=== PATIENT | female | born 1950 | race Caucasian/White ===

== ENCOUNTER 2017-04-20 19:16 | Inpatient (IN) ==
[2017-04-20] MEDS ORDERED: 0.9 % Sodium Chloride 1,000 ML IVC ONE (19:32)
[2017-04-20 20:34] LABS: Basophils # 0.1 K/mcL (0.0-0.2); Basophils % 0.6 %; Eosinophils # 0.1 K/mcL (0.0-0.6); Eosinophils % 0.6 %; Hematocrit 42.8 % (35.3-44.9); Hemoglobin 14.5 g/dL (11.5-15.4); Immature Granulocytes % 0.5 % (0-4); Lymphocytes # 2.4 K/mcL (0.6-4.6); Lymphocytes % 23.6 %; Mean Corpuscular HGB Conc 33.9 g/dL (31.6-35.5); Mean Corpuscular Hemoglobin 31.2 pg (28.0-33.3); Mean Platelet Volume 9.5 fL (9.4-12.4); Monocytes % 10.1 %; Neutrophils # 6.5 K/mcL (1.6-8.9); Platelet Count 366 K/mcL (140-400); Red Blood Count 4.65 M/mcL (3.82-4.97); Red Cell Distribution Width 12.3 % (11.5-14.5); Segmented Neutrophils % 64.6 %
[2017-04-20 20:39] LABS: INR 1.1; Prothrombin Time 11.8 Seconds (9.4-12.1)
[2017-04-20 20:42] LABS: Activated Partial Thrombo Time 29.3 Seconds (26.0-36.0)
[2017-04-20 20:49] LABS: Alanine Aminotransferase 21 Units/L (0-55); Albumin 3.7 g/dL (3.5-5.0); Albumin/Globulin Ratio 0.9 (1.1-2.2); Alkaline Phosphatase 55 Units/L (38-126); BUN/Creatinine Ratio 11 (6-26); Bilirubin,Indirect 0.3 mg/dL (0.0-1.2); Bilirubin,Total 0.5 mg/dL (0.2-1.2); Blood Urea Nitrogen 11 mg/dL (7-20); Calcium 10.1 mg/dL (8.6-10.8); Carbon Dioxide 25 mEq/L (19-29); Chloride 103 mEq/L (98-109); Globulin 3.9 g/dL (2.4-3.5); Glucose 126 mg/dL (70-99); Lipase 23 Units/L (8-78); Osmolality,Calculated 289 (280-300); Phosphorous 3.5 mg/dL (2.3-4.7); Sodium 139 mEq/L (136-145); Total Protein 7.6 g/dL (6.0-8.3); eGFR For African Americans > 60 (> 60); eGFR For Non-African Americans 55 (> 60)
[2017-04-20 20:51] LABS: Aspartate Amino Transferase 29 Units/L (5-34); Bilirubin,Direct 0.2 mg/dL (0.0-0.5); Magnesium 2.1 mg/dL (1.6-2.6); Potassium 3.6 mEq/L (3.5-4.5)
[2017-04-20 21:35] LABS: Bilirubin,Urine Negative (Negative); Blood,Urine Negative (Negative); Clarity,Urine Clear (Clear); Color,Urine Yellow (Yellow); Glucose,Urine (UA) Normal (Normal); Ketones,Urine Negative (Negative); Leukocyte Esterase,Urine Moderate (Negative); Nitrite,Urine Negative (Negative); PH,Urine 7.5 pH Units (5.0-8.0); Protein,Urine Negative (Neg-Trace); Specific Gravity,Urine 1.007 (1.010-1.025); Urobilinogen,Urine Normal (Normal)
[2017-04-20 21:37] LABS: Bacteria,Urine None Seen per hpf (None-Few); Hyaline Casts,Urine None Seen per lpf (None-Few); Squamous Epithelial Cell,Urine Many per lpf (None-Few)
--- NOTE | 2017-04-20 22:53 | Emergency Department Note ---
Disposition Clinical Impression: Acute confusion, Urinary (tract) obstruction Disposition: Admitted As Inpatient Condition: Good Forms: ED Satisfaction Letter Time of Disposition: 23:01 General Adult HPI - General Chief complaint: ED Back Pain/Injury Stated complaint: back pain friend says is psychotic Time Seen by Provider: 04/20/17 19:23 Source: patient Mode of arrival: wheelchair Limitations: no limitations Nursing Notes Reviewed: Yes Vital Signs Reviewed: Yes - History of Present Illness HPI Narrative: Patient presents emergency room with confusion from home. Family is concerned that she has a urinary tract infection again. They are also worried about her having issues with depression secondary to her sister's being at this time of the year 1 year ago. They deny any other symptoms or issues at this time. No new medications. No trauma. Onset (ago): day(s) Radiation: non-radiation Pain Severity: similar to prior episodes Pain Scale: 10 Consistency: constant Improves with: nothing Worsens with: nothing Associated symptoms: Reports: confusion, loss of appetite Treatments Prior to Arrival: none - Related Data Home Medications Medication Instructions Recorded Confirmed FLUoxetine HCl [Fluoxetine HCl] 60 mg PO DAILY 07/10/16 07/10/16 traMADol [Ultram] 50 mg PO TID PRN 07/10/16 07/10/16 Furosemide [Lasix] 20 mg PO DAILY 07/11/16 07/11/16 Lisinopril/Hydrochlorothiazide 1 tab PO DAILY 07/11/16 07/11/16 [Zestoretic 20-25 mg Tablet] Valacyclovir HCl [Valtrex] 1,000 mg PO DAILY 07/11/16 07/11/16 predniSONE [Prednisone] 40 mg PO DAILY 07/11/16 07/11/16 Acetaminophen/Diphenhydramine 1 tab PO HS PRN 04/20/17 04/20/17 [Acetaminophen Pm Caplet] Calcium Carbonate/Vitamin D3 1 tab PO DAILY 04/20/17 04/20/17 [Calcium 500+D Tablet Chew] Cholecalciferol (D-3) [Vitamin D] 1,000 unit PO DAILY 04/20/17 04/20/17 Doxycycline 100 mg PO BID 04/20/17 04/20/17 Folic Acid 1 mg PO DAILY 04/20/17 04/20/17 Ibuprofen [Motrin] 400 mg PO Q6HR PRN 04/20/17 04/20/17 Quetiapine Fumarate [Seroquel] 50 mg PO BID 04/20/17 04/20/17 Previous Rx's Medication Instructions Recorded Potassium Chloride [Klor-Con 10] 10 meq PO DAILY #30 tablet.er 07/12/16 Allergies Allergy/AdvReac Type Severity Reaction Status Date / Time No Known Allergies Allergy Verified 04/20/17 22:48 All systems ED: reviewed and negative except as stated. Review of Systems: As Per HPI Constitutional: Denies: fever, chills Cardiovascular: Denies: chest pain, palpitations, dyspnea on exertion Respiratory: Denies: cough, dyspnea, wheezes Gastrointestinal: Denies: abdominal pain, nausea, vomiting, diarrhea, constipation Genitourinary: Reports: dysuria. Denies: urgency, frequency, hematuria Musculoskeletal: Denies: back pain, neck pain Neurological: Denies: headache, weakness Psychiatric: Reports: depression. Denies: anxiety Past Medical History - Past Medical History Attestation: Yes The following information was validated with the patient. Source: patient Medical history: Reports: hyperlipidemia, hypertension Surgical history: Reports: non-contributory Psychiatric history: Reports: anxiety, depression [employer] history: Reports: no [employer] history - Social History Smoking Status: Never smoker Smokeless Tobacco Status: No Alcohol use: Reports: occasionally Drug use: Reports: none Physical Exam - General Limitations: no limitations General appearance: alert - Head Head exam: atraumatic, normocephalic, normal inspection - Eye Eye exam: Present: normal appearance, PERRL, EOMI. Absent: periorbital swelling , periorbital tenderness - ENT ENT exam: normal exam, normal oropharynx, mucous membranes moist - Neck Neck exam: Present: normal inspection, full ROM, trachea midline. Absent: lymphadenopathy - Chest Chest inspection: Present: normal inspection, symmetric chest wall rise - Respiratory Respiratory exam: Present: normal lung sounds bilaterally. Absent: respiratory distress, accessory muscle use - Cardiovascular Cardiovascular exam: Present: regular rate, normal rhythm, normal heart sounds - Abdominal Exam Abdominal exam: Present: soft, tenderness, normal bowel sounds. Absent: distention, guarding, rebound, rigidity, Trivedi's sign, Rovsing's sign, tenderness at McBurney's Point, pulsatile mass, hernia - Extremities Exam Extremities exam: Present: normal inspection, full ROM, normal capillary refill. Absent: tenderness, pedal edema, joint swelling, calf tenderness - Back Exam Back exam: Present: normal inspection, full ROM, CVA tenderness (R), CVA tenderness (L). Absent: tenderness - Neurological Exam Neurological exam: Present: alert, CN II-XII intact, normal gait - Skin Skin exam: Present: warm, dry, intact, normal color Course Course Narrative: Patient seen and examined at the time of arrival. See history of present illness. 66-year-old female presents to emergency room with family with concern for possible confusion secondary to urinary tract infection. Family denies any other issues except for possible depression secondary to a loss in the family one year ago at this time. Vital signs are reviewed and are stable in presentation. I present to the room patient lying in the bed in no distress. She has intermittent signs of confusion and does not want to interact her conversations about what is going on. Her head is atraumatic her pupils are equal round reactive to light. Her mucous membranes are moist. Her lungs are clear heart is regular. Abdomen is soft with mild tenderness diffusely across the abdomen . nondistended with no guarding no rigidity and no peritoneal like symptoms at this time.patient is alert intermittent send the confusion disoriented to time at points but is appropriate for place. Patient moves all fours extremities without any difficulty. Pulses are intact. No signs of pitting edema. No tenderness to the calves. Patient is concerning based on symptoms and history as well as the family interaction for possible urinary tract infection causing confusion. CT imaging the head chest x-ray CT the abdomen along with CBC chemistry and troponin lipase liver function testing and urinalysis to be completed at this time. Fluids appears to Rocephin to be given at this point. Otherwise no other acute issues noted this time. Patient is stable resting comfortably in the bed. Disposition pending treatment course evaluation - Reevaluation(s) Reevaluation #1: Patient found to have negative laboratory workup but there is concern for possible urinary tract infection secondary to leukoesterases and white blood cells on the urinalysis without any blood. No bacteria was physically seen at this time. CT imaging is concerning for pyelonephritis secondary to bilateral nephric stranding. This is consistent with the presentation of this time making the urinary tract infection causing the confusion top on the differential. CT imaging of the head and chest x-ray are otherwise negative. Patient family informed comfortable with the plan at this time which would be admission the hospital for definitive management of what appears to be a UTI causing confusion in an elderly female. Patient otherwise shows no acute signs of decompensation distress at this point. Hospitalist to be paged at this time Time: 22:59 Reevaluation #2: Discussed with Dr. Butts. Reviewed the presentation symptoms medical history as well as intervention here. No other concerns or complaints at this time. Patient is otherwise stable. Will omit the hospital this time for definitive management. We will continue to monitor here Z admission processes completed Time: 00:08 Vital Signs Temperature 97.9 F 04/20/17 19:18 Pulse Rate 99 04/20/17 19:18 Respiratory Rate 20 04/20/17 19:18 Blood Pressure 110/73 04/20/17 19:18 O2 Sat by Pulse Oximetry 97 04/20/17 19:18 Temperature 97.9 F 04/20/17 19:18 Pulse Rate 99 04/20/17 19:18 Respiratory Rate 20 04/20/17 19:18 Blood Pressure 110/73 04/20/17 19:18 O2 Sat by Pulse Oximetry 97 04/20/17 19:18 Oxygen Delivery Oxygen Delivery Room Air Medical Decision Making - MDM Narrative Medical decision making narrative: Confusion, urinary tract infection - Medical Records Medical records reviewed: Yes I reviewed the patient's medical records. - Lab Data Lab results reviewed: Yes I reviewed the patient's lab results. Result diagrams: 04/20/17 20:21 04/20/17 20:21 Lab Results 04/20/17 04/20/17 04/20/17 Range/Units 20:21 20:21 20:21 WBC 10.1 (4.3-11.1) K/mcL RBC 4.65 (3.82-4.97) M/mcL Hgb 14.5 (11.5-15.4) g/dL Hct 42.8 (35.3-44.9) % MCV 92.0 (83.0-100.0) fL MCH 31.2 (28.0-33.3) pg MCHC 33.9 (31.6-35.5) g/dL RDW 12.3 (11.5-14.5) % Plt Count 366 (140-400) K/mcL MPV 9.5 (9.4-12.4) fL Immature Gran % 0.5 (0-4) % Seg Neutrophils % 64.6 % Lymphocytes % 23.6 % Monocytes % 10.1 % Eosinophils % 0.6 % Basophils % 0.6 % Neutrophils # 6.5 (1.6-8.9) K/mcL Lymphocytes # 2.4 (0.6-4.6) K/mcL Monocytes # 1.0 (0.0-1.3) K/mcL Eosinophils # 0.1 (0.0-0.6) K/mcL Basophils # 0.1 (0.0-0.2) K/mcL PT 11.8 (9.4-12.1) Seconds INR 1.1 APTT 29.3 (26.0-36.0) Seconds Sodium 139 (136-145) mEq/L Potassium 3.6 (3.5-4.5) mEq/L Chloride 103 (98-109) mEq/L Carbon Dioxide 25 (19-29) mEq/L BUN 11 (7-20) mg/dL Creatinine 1.01 (0.57-1.11) mg/dL Est GFR ( Amer) > 60 (> 60) Est GFR (Non-Af Amer) 55 L (> 60) BUN/Creatinine Ratio 11 (6-26) Glucose 126 H (70-99) mg/dL Calculated Osmolality 289 (280-300) Lactic Acid (0.5-2.2) mmol/L Calcium 10.1 (8.6-10.8) mg/dL Phosphorus 3.5 (2.3-4.7) mg/dL Magnesium 2.1 (1.6-2.6) mg/dL Total Bilirubin 0.5 (0.2-1.2) mg/dL Direct Bilirubin 0.2 (0.0-0.5) mg/dL Indirect Bilirubin 0.3 (0.0-1.2) mg/dL AST 29 (5-34) Units/L ALT 21 (0-55) Units/L Alkaline Phosphatase 55 (38-126) Units/L Troponin I (0-0.03) ng/mL B-Natriuretic Peptide (0-100) pg/mL Serum Total Protein 7.6 (6.0-8.3) g/dL Albumin 3.7 (3.5-5.0) g/dL Globulin 3.9 H (2.4-3.5) g/dL Albumin/Globulin Ratio 0.9 L (1.1-2.2) Lipase 23 (8-78) Units/L Urine Color (Yellow) Urine Clarity (Clear) Urine pH (5.0-8.0) pH Units Ur Specific Nora (1.010-1.025) Urine Protein (Neg-Trace) mg/dL Urine Glucose (UA) (Normal) mg/dL Urine Ketones (Negative) mg/dL Urine Blood (Negative) Urine Nitrite (Negative) Urine Bilirubin (Negative) Urine Urobilinogen (Normal) mg/dL Ur Leukocyte Esterase (Negative) Urine Microscopic RBC (0-3) per hpf Urine Microscopic WBC (0-3) per hpf Ur Squamous Epith Cells (None-Few) per lpf Urine Bacteria (None-Few) per hpf Hyaline Casts (None-Few) per lpf Ur Culture Indicated? (NO) 04/20/17 04/20/17 04/20/17 Range/Units 20:21 20:21 20:21 WBC (4.3-11.1) K/mcL RBC (3.82-4.97) M/mcL Hgb (11.5-15.4) g/dL Hct (35.3-44.9) % MCV (83.0-100.0) fL MCH (28.0-33.3) pg MCHC (31.6-35.5) g/dL RDW (11.5-14.5) % Plt Count (140-400) K/mcL MPV (9.4-12.4) fL Immature Gran % (0-4) % Seg Neutrophils % % Lymphocytes % % Monocytes % % Eosinophils % % Basophils % % Neutrophils # (1.6-8.9) K/mcL Lymphocytes # (0.6-4.6) K/mcL Monocytes # (0.0-1.3) K/mcL Eosinophils # (0.0-0.6) K/mcL Basophils # (0.0-0.2) K/mcL PT (9.4-12.1) Seconds INR APTT (26.0-36.0) Seconds Sodium (136-145) mEq/L Potassium (3.5-4.5) mEq/L Chloride (98-109) mEq/L Carbon Dioxide (19-29) mEq/L BUN (7-20) mg/dL Creatinine (0.57-1.11) mg/dL Est GFR ( Amer) (> 60) Est GFR (Non-Af Amer) (> 60) BUN/Creatinine Ratio (6-26) Glucose (70-99) mg/dL Calculated Osmolality (280-300) Lactic Acid 1.3 (0.5-2.2) mmol/L Calcium (8.6-10.8) mg/dL Phosphorus (2.3-4.7) mg/dL Magnesium (1.6-2.6) mg/dL Total Bilirubin (0.2-1.2) mg/dL Direct Bilirubin (0.0-0.5) mg/dL Indirect Bilirubin (0.0-1.2) mg/dL AST (5-34) Units/L ALT (0-55) Units/L Alkaline Phosphatase (38-126) Units/L Troponin I 0.00 (0-0.03) ng/mL B-Natriuretic Peptide 70 (0-100) pg/mL Serum Total Protein (6.0-8.3) g/dL Albumin (3.5-5.0) g/dL Globulin (2.4-3.5) g/dL Albumin/Globulin Ratio (1.1-2.2) Lipase (8-78) Units/L Urine Color (Yellow) Urine Clarity (Clear) Urine pH (5.0-8.0) pH Units Ur Specific Nora (1.010-1.025) Urine Protein (Neg-Trace) mg/dL Urine Glucose (UA) (Normal) mg/dL Urine Ketones (Negative) mg/dL Urine Blood (Negative) Urine Nitrite (Negative) Urine Bilirubin (Negative) Urine Urobilinogen (Normal) mg/dL Ur Leukocyte Esterase (Negative) Urine Microscopic RBC (0-3) per hpf Urine Microscopic WBC (0-3) per hpf Ur Squamous Epith Cells (None-Few) per lpf Urine Bacteria (None-Few) per hpf Hyaline Casts (None-Few) per lpf Ur Culture Indicated? (NO) 04/20/17 Range/Units 21:20 WBC (4.3-11.1) K/mcL RBC (3.82-4.97) M/mcL Hgb (11.5-15.4) g/dL Hct (35.3-44.9) % MCV (83.0-100.0) fL MCH (28.0-33.3) pg MCHC (31.6-35.5) g/dL RDW (11.5-14.5) % Plt Count (140-400) K/mcL MPV (9.4-12.4) fL Immature Gran % (0-4) % Seg Neutrophils % % Lymphocytes % % Monocytes % % Eosinophils % % Basophils % % Neutrophils # (1.6-8.9) K/mcL Lymphocytes # (0.6-4.6) K/mcL Monocytes # (0.0-1.3) K/mcL Eosinophils # (0.0-0.6) K/mcL Basophils # (0.0-0.2) K/mcL PT (9.4-12.1) Seconds INR APTT (26.0-36.0) Seconds Sodium (136-145) mEq/L Potassium (3.5-4.5) mEq/L Chloride (98-109) mEq/L Carbon Dioxide (19-29) mEq/L BUN (7-20) mg/dL Creatinine (0.57-1.11) mg/dL Est GFR ( Amer) (> 60) Est GFR (Non-Af Amer) (> 60) BUN/Creatinine Ratio (6-26) Glucose (70-99) mg/dL Calculated Osmolality (280-300) Lactic Acid (0.5-2.2) mmol/L Calcium (8.6-10.8) mg/dL Phosphorus (2.3-4.7) mg/dL Magnesium (1.6-2.6) mg/dL Total Bilirubin (0.2-1.2) mg/dL Direct Bilirubin (0.0-0.5) mg/dL Indirect Bilirubin (0.0-1.2) mg/dL AST (5-34) Units/L ALT (0-55) Units/L Alkaline Phosphatase (38-126) Units/L Troponin I (0-0.03) ng/mL B-Natriuretic Peptide (0-100) pg/mL Serum Total Protein (6.0-8.3) g/dL Albumin (3.5-5.0) g/dL Globulin (2.4-3.5) g/dL Albumin/Globulin Ratio (1.1-2.2) Lipase (8-78) Units/L Urine Color Yellow (Yellow) Urine Clarity Clear (Clear) Urine pH 7.5 (5.0-8.0) pH Units Ur Specific Nora 1.007 L (1.010-1.025) Urine Protein Negative (Neg-Trace) mg/dL Urine Glucose (UA) Normal (Normal) mg/dL Urine Ketones Negative (Negative) mg/dL Urine Blood Negative (Negative) Urine Nitrite Negative (Negative) Urine Bilirubin Negative (Negative) Urine Urobilinogen Normal (Normal) mg/dL Ur Leukocyte Esterase Moderate H (Negative) Urine Microscopic RBC 3-5 H (0-3) per hpf Urine Microscopic WBC 5-15 H (0-3) per hpf Ur Squamous Epith Cells Many H (None-Few) per lpf Urine Bacteria None Seen (None-Few) per hpf Hyaline Casts None Seen (None-Few) per lpf Ur Culture Indicated? YES A (NO) - Radiology Data Radiology results reviewed: Yes I reviewed the patient's radiology results. CT imaging of the head is negative for acute pathology. Chest x-ray stable. CT imaging of the abdomen shows bilateral perinephric stranding. - EKG Data EKG #1 EKG attestation: Yes I reviewed and interpreted this EKG. EKG shows normal: sinus rhythm, axis, intervals, QRS complexes, ST-T waves Rate: normal Rhythm: NSR [place]/QRS: normal When compared to previous EKG there are: no significant changes Interpretation: no acute changes, unchanged when compared to prior tracing (date ) (07/10/16) Critical Care Time Critical Care Time: Yes Total Critical Care Time: 35 Attestation: Critical care performed: Time is exclusive of separately billable procedures. Time includes: direct patient care, patient reassessment, coordination of patient care, interpretation of data (laboratory data, radiology data, and respiratory data), review of patient's medical records, medical consultation and documentation of patient care. Procedures included in critical care time: Procedures excluded from critical care time:
[2017-04-21] MEDS ORDERED: traMADol 50 MG TABLET PO PRN (00:23)
[2017-04-21] MEDS ORDERED: ACETAMINOPHEN PM PO PRN (00:23)
[2017-04-21] MEDS ORDERED: Naloxone 0.4 MG/ML INJ IVP PRN (00:27)
--- NOTE | 2017-04-21 00:35 | Internal Med History&Physical ---
Date of Encounter: 04/21/17 Time of Encounter: 00:32 Assessment and Plan (1) Pyelonephritis, acute Current visit: Yes Status: Acute IV fluids, IV Rocephin, urine cultures pending to follow , urinalysis with scant pyuria (2) Encephalopathy acute Current visit: Yes Status: Acute Improved at current. Likely secondary to pyelonephritis (3) HTN (hypertension), benign Current visit: Yes Status: Acute Continue home blood pressure medicines (4) Depression Current visit: No Status: Chronic continue Prozac Qualifiers: Depression Type: other depression Qualified Code(s): F32.89 - Other specified depressive episodes Internal Medicine - H&P: HPI Chief complaint: confusion , urinary frequency History of present illness: Ms. Argueta is a 66 year old female with a history of depression and recurrent TIAs who presents with one-week history of acute confusion with urinary frequency and was subsequently found to have possible pyelonephritis. Symptoms began last when she was at [facility] where she developed acute persistent confusion and altered mental status that did not get better. On review she denies dysuria but admits to urinary frequency and poorly localized backache. In the ER urine studies demonstrated scant pyuria with a CT abdomen and pelvis with nonspecific stranding left greater than right suspicious for pyelonephritis. Past Med Surg Social Fam HX - Past Medical History Medical history: hyperlipidemia, hypertension Psychiatric history: anxiety, depression - Past Surgical History Surgical History: non-contributory - Social History Smoking Status: Never smoker Smokeless Tobacco Status: No Alcohol use: occasionally Drug use: none - Family History Mother Hx Family Cardiac Disorders: Yes Hx Family Cancer: Yes Hx Family Endocrine Disorder: Yes (diabetes) Father Hx Family Cardiac Disorders: Yes Hx Family Respiratory Disorders: Yes (COPD) Hx Family Cancer: Yes Internal Medicine - H&P: Meds FLUoxetine HCl [Fluoxetine HCl] 60 mg PO DAILY 07/10/16 [History] traMADol [Ultram] 50 mg PO TID PRN 07/10/16 [History] Furosemide [Lasix] 20 mg PO DAILY 07/11/16 [History] Lisinopril/Hydrochlorothiazide [Zestoretic 20-25 mg Tablet] 1 tab PO DAILY 07/11 [History] Valacyclovir HCl [Valtrex] 1,000 mg PO DAILY 07/11/16 [History] predniSONE [Prednisone] 40 mg PO DAILY 07/11/16 [History] Potassium Chloride [Klor-Con 10] 10 meq PO DAILY #30 tablet.er 07/12/16 [Rx] Acetaminophen/Diphenhydramine [Acetaminophen Pm Caplet] 1 tab PO HS PRN [History] Calcium Carbonate/Vitamin D3 [Calcium 500+D Tablet Chew] 1 tab PO DAILY [History] Cholecalciferol (D-3) [Vitamin D] 1,000 unit PO DAILY 04/20/17 [History] Doxycycline 100 mg PO BID 04/20/17 [History] Folic Acid 1 mg PO DAILY 04/20/17 [History] Ibuprofen [Motrin] 400 mg PO Q6HR PRN 04/20/17 [History] Quetiapine Fumarate [Seroquel] 50 mg PO BID 04/20/17 [History] Allergies No Known Allergies Allergy (Verified 04/20/17 22:48) All Systems PM: A 10-system review of systems was performed and is negative for pertinent findings except as documented above in the HPI. Review of systems: ROS 14 point review of systems reviewed. Pertinent positive or negative as per HPI or otherwise reviewed as negative - Constitutional Vitals: Temp Pulse Resp BP Pulse Ox 97.9 F 86 18 149/81 99 04/20/17 19:18 04/20/17 23:36 04/20/17 23:36 04/20/17 23:36 04/20/17 23:36 Exam: General - AAO x 3 Psych - Appropriate affect/speech. No agitation Eyes - DAY. Eye lids intact. No scleral icterus ENT - Oral mucosa pink, dentition intact. External ear clear/dry/intact. No thyromegaly Lymphatics - No cervical/inguinal lympadenopathy Neuro - No gross peripheral or central neuro deficits with intact CN 2-12 exam Heart - Sinus. RRR. S1 and S2 present. No added HS/murmurs appreciated. No elevated JVD appreciated. S1 lower extremity edema or skin rash Lung - decreased air entry b/l, No crackes/wheezes appreciated GI - Soft, non-tender. No hepatosplenomegaly/ascities. BS+ - No over CVA/suprapubic tenderness or palpable bladder distension Skin - Intact. No rash/petechiae/ecchymosis. Warm extremities MSK - Joints with normal ROM. No joint swellings Internal Med - H&P Results - Labs CBC & Chem 7: 04/20/17 20:21 04/20/17 20:21
[2017-04-21 05:02] LABS: Basophils # 0.1 K/mcL (0.0-0.2); Basophils % 0.6 %; Eosinophils # 0.1 K/mcL (0.0-0.6); Eosinophils % 1.4 %; Hemoglobin 14.8 g/dL (11.5-15.4); Immature Granulocytes % 0.6 % (0-4); Lymphocytes # 2.6 K/mcL (0.6-4.6); Lymphocytes % 29.4 %; Mean Corpuscular HGB Conc 33.6 g/dL (31.6-35.5); Mean Corpuscular Hemoglobin 31.4 pg (28.0-33.3); Mean Corpuscular Volume 93.4 fL (83.0-100.0); Mean Platelet Volume 9.5 fL (9.4-12.4); Monocytes % 11.1 %; Platelet Count 339 K/mcL (140-400); Red Blood Count 4.71 M/mcL (3.82-4.97); Red Cell Distribution Width 12.3 % (11.5-14.5); Segmented Neutrophils % 56.9 %
[2017-04-21 05:15] LABS: BUN/Creatinine Ratio 12 (6-26); Blood Urea Nitrogen 10 mg/dL (7-20); Calcium 9.7 mg/dL (8.6-10.8); Carbon Dioxide 26 mEq/L (19-29); Chloride 105 mEq/L (98-109); Glucose 84 mg/dL (70-99); Osmolality,Calculated 290 (280-300); Potassium 3.6 mEq/L (3.5-4.5); Sodium 141 mEq/L (136-145); eGFR For African Americans > 60 (> 60); eGFR For Non-African Americans > 60 (> 60)
[2017-04-21] MEDS: Folic Acid 1 MG TABLET PO SCH (08:46)
[2017-04-21] MEDS: 0.9 % Sodium Chloride 1,000 ML IVC SCH ×2 (08:46→20:18)
[2017-04-21] MEDS: [UNRECOGNIZED DRUG - OTHER] PO SCH (08:46)
[2017-04-21] MEDS: CALCIUM PO SCH (08:46)
[2017-04-21] MEDS ORDERED: FLUoxetine 20 MG CAPSULE PO SCH (09:00)
--- NOTE | 2017-04-21 13:25 | Internal Med Progress Note ---
Date of Encounter: 04/21/17 Time of Encounter: 09:00 - Assessment and plan (1) Acute confusion Current Visit: Yes Status: Acute Assessment and plan: Patient was admitted as altered mental status. Etiology is undetermined. Resolved that when I saw her. Possibly due to UTI. Or patient has psychology issue. - We will continue treat UTI. - We will get psychiatry consult. (2) UTI (urinary tract infection) Current Visit: No Status: Acute Assessment and plan: Mild UTI on urine analysis. Patient has no systemic symptoms. Denies nausea vomiting. Patient did refuse IV antibiotics. Will place patient on by mouth antibiotics. Follow-up urine culture result. Qualifiers: Urinary tract infection type: acute cystitis Hematuria presence: without hematuria Qualified Code(s): N30.00 - Acute cystitis without hematuria (3) Grief Current Visit: No Status: Acute Assessment and plan: Patient has grief because her younger sister has one year ago. (4) Depression Current Visit: No Status: Chronic Assessment and plan: Continue home medications Qualifiers: Depression Type: other depression Qualified Code(s): F32.89 - Other specified depressive episodes - Time Spent With Patient 25 - 35 minutes - Subjective Interval history: Patient is a 66-year-old female admitted for altered mental status. Past medical history is significant for hyperlipidemia and hypertension. I saw and examined the patient. Patient is mentally clear, oriented to time and place well. To me, she had no confusion. Vitals are stable. Denies nausea vomiting, back pain. No fever. Patient did refuse IV antibiotic and IV fluid. Will consider change to by mouth antibiotic. Patient's and sister reported patient has strange behavior, depression, and hallucination. Will consult psychiatry. - Constitutional Vitals: Temp Pulse Resp BP Pulse Ox 98.3 F 73 16 147/66 100 04/21/17 11:24 04/21/17 11:24 04/21/17 11:24 04/21/17 11:24 04/21/17 11:24 General appearance: Present: A&O X 3, no acute distress, answers questions appropriately - Head Head exam: Present: atraumatic, normocephalic - Eye Eye exam: Present: PERRL, conjuntiva pink, sclera anicteric Pupils: Present: PERRL - Neck Neck exam general surgery: Present: supple, trachea midline. Absent: lymphadenopathy - Respiratory Respiratory exam: Present: CTAB. Absent: accessory muscle use, rales, rhonchi, wheezes - Cardiovascular Cardiovascular exam: Present: RRR, +S1, +S2. Absent: diastolic murmur, gallop, rubs, systolic murmur - GI/Abdominal GI/Abdominal exam: Present: normal bowel sounds, soft, no peritoneal signs. Absent: distended, tenderness - Extremities Exam Extremities exam: Present: warm, radial pulses palpable and symetrical. Absent : calf tenderness, cyanotic, pedal edema - Neurological Exam Neurological exam: Present: CN II-XII intact, oriented X3, no focal deficits. Absent: pronater drift, facial droop, speech deficit - Skin Skin exam: Present: dry, intact Internal Medicine: Result - Labs CBC & Chem 7: 04/21/17 04:29 04/21/17 04:29 Labs: Short CBC 04/21/17 Range/Units 04:29 WBC 8.8 (4.3-11.1) K/mcL Hgb 14.8 (11.5-15.4) g/dL Hct 44.0 (35.3-44.9) % Plt Count 339 (140-400) K/mcL Neutrophils # 5.0 (1.6-8.9) K/mcL BMP 04/21/17 04:29 Sodium 141 Potassium 3.6 Chloride 105 Carbon Dioxide 26 BUN 10 Creatinine 0.86 Glucose 84 Calcium 9.7 - ABG Interpretation ABG results: PT/INR, D-dimer PT 11.8 Seconds (9.4-12.1) 04/20/17 20:21 Consult Discharge Plan - Plan Referrals: Neri Knowles MD [Primary Care Provider] -
--- NOTE | 2017-04-21 14:21 | Electrocardiograph Report ---
[address] [place], [place] [address] Test Date: 2017-04-20 Pat Name: Keara Argueta Department: 104 Room: 3B14 Gender: F Clinician Oncology: RONNIE : 1950 Requested By: Freddie Leary Order Number: [id number] Reading MD: Barrie Garcia MD Measurements Intervals [place] Rate: 82 P: 48 DC: 141 QRS: -3 QRSD: 92 T: 31 QT: 402 QTc: 440 Interpretive Statements SINUS RHYTHM Electronically Signed On 04-21-2017 14:19:38 EDT by Barrie Garcia MD
--- NOTE | 2017-04-21 15:44 | Consult Note ---
Date of Encounter: 04/21/17 Time of Encounter: 14:50 Assessment & Recommendation (1) Unspecified psychosis Current visit: Yes Status: Acute Qualifiers: Psychosis type: unspecified psychosis type Qualified Code(s): F29 - Unspecified psychosis not due to a substance or known physiological condition History of Present Illness Requesting Physician: Rossana Sanchez Reason for consult: hallucinations History of present illness: Ms. Argueta is a 66 year old White female admitted for altered mental status. CC: all is well and i am fine. chart reviewed , collateral from and sister who were in room with her with her permission. as per sister she was gigling , delusional and not her self so they bought her to hospital. as per has had ups and down , mood swings and hyper at times. Patient agreed has not taken her seroquel for 6 months, recently started by 2 days back, she has not taken prozac for 3-4 days. admits since her sister in 05/11 she has not been the same , she has been up and down , sad and happy, hyper at times and royal , also hears music and mumbling, thoughts come to her mind that and sister will hurt her even when she knows its not true,has had visual hallucinations bugs on ceiling, denies any suicidal ideation and able to hold conversation , some periods of confusion about dates and times. patient was started prozac by her family physician. she also had some prednisone 1-2 weeks before sec. to rash as per her which could also caused mood and psychotic s/s. she was admitted last year in 07/11 for altered mental status and as per family was worse than this episode, during that admission was started on seroquel but didnot comply after few months, had continued taking prozac . a/p: rec. out patient psychiatric and counselling follow up. continue seroquel 50 mg bid. rec. to decrease prozac to 40 mg po am as patient has some hyperactivity. at present not in danger to self/others. CC: Rossana Sanchez Past Med Surg Social Fam HX - Past Medical History Medical history: hyperlipidemia, hypertension - Past Psychiatric History Psychiatric history: Reports: depression Family psychiatric history: Yes Family History of Suicide: Unknown - Past Surgical History Surgical History: non-contributory - Social History Smoking Status: Never smoker Smokeless Tobacco Status: No Alcohol use: occasionally Drug use: none - Family History Mother Hx Family Cardiac Disorders: Yes Hx Family Cancer: Yes Hx Family Endocrine Disorder: Yes (diabetes) Father Hx Family Cardiac Disorders: Yes Hx Family Respiratory Disorders: Yes (COPD) Hx Family Cancer: Yes Medications & Allergies FLUoxetine HCl [Fluoxetine HCl] 60 mg PO DAILY 07/10/16 [History] traMADol [Ultram] 50 mg PO TID PRN 07/10/16 [History] Furosemide [Lasix] 20 mg PO DAILY 07/11/16 [History] Lisinopril/Hydrochlorothiazide [Zestoretic 20-25 mg Tablet] 1 tab PO DAILY 07/11 [History] Valacyclovir HCl [Valtrex] 1,000 mg PO DAILY 07/11/16 [History] predniSONE [Prednisone] 40 mg PO DAILY 07/11/16 [History] Potassium Chloride [Klor-Con 10] 10 meq PO DAILY #30 tablet.er 07/12/16 [Rx] Acetaminophen/Diphenhydramine [Acetaminophen Pm Caplet] 1 tab PO HS PRN [History] Calcium Carbonate/Vitamin D3 [Calcium 500+D Tablet Chew] 1 tab PO DAILY [History] Cholecalciferol (D-3) [Vitamin D] 1,000 unit PO DAILY 04/20/17 [History] Doxycycline 100 mg PO BID 04/20/17 [History] Folic Acid 1 mg PO DAILY 04/20/17 [History] Ibuprofen [Motrin] 400 mg PO Q6HR PRN 04/20/17 [History] Quetiapine Fumarate [Seroquel] 50 mg PO BID 04/20/17 [History] Allergies No Known Allergies Allergy (Verified 04/20/17 22:48) Review of Systems Psychiatric: Reports: anxiety, abnormal sleep pattern, auditory hallucinations, visual hallucinations, confusion Mental Status Exam Patient orientation: Yes Person, Yes Time, Yes Place Level of alertness: Alert Patient appearance: Appropriate Behavior: restless, distractible Psychomotor activity: Increased Eye contact: Minimal Contact Mood description: Anxious, Euphoric Affect description: incongruent with mood Speech pattern: Coherent Speech volume: Normal Thought process: Racing Thought content: Yes Paranoid delusion Perceptual disturbances: Yes Auditory hallucinations Attention span: Unable to Sustain Attention Memory description: Recent Impaired Patient reliability: Questionable Historian Intelligence estimate: Average Judgment: Fair Insight: Partial Results - Vital Signs Vital signs: Temp Pulse Resp BP Pulse Ox 98.3 F 73 16 147/66 100 04/21/17 11:24 04/21/17 11:24 04/21/17 11:24 04/21/17 11:24 04/21/17 11:24 - Labs Labs: Laboratory Last Values WBC 8.8 K/mcL (4.3-11.1) 04/21/17 04:29 RBC 4.71 M/mcL (3.82-4.97) 04/21/17 04:29 Hgb 14.8 g/dL (11.5-15.4) 04/21/17 04:29 Hct 44.0 % (35.3-44.9) 04/21/17 04:29 MCV 93.4 fL (83.0-100.0) 04/21/17 04:29 MCH 31.4 pg (28.0-33.3) 04/21/17 04:29 MCHC 33.6 g/dL (31.6-35.5) 04/21/17 04:29 RDW 12.3 % (11.5-14.5) 04/21/17 04:29 Plt Count 339 K/mcL (140-400) 04/21/17 04:29 MPV 9.5 fL (9.4-12.4) 04/21/17 04:29 Immature Gran % 0.6 % (0-4) 04/21/17 04:29 Seg Neutrophils % 56.9 % 04/21/17 04:29 Lymphocytes % 29.4 % 04/21/17 04:29 Monocytes % 11.1 % 04/21/17 04:29 Eosinophils % 1.4 % 04/21/17 04:29 Basophils % 0.6 % 04/21/17 04:29 Neutrophils # 5.0 K/mcL (1.6-8.9) 04/21/17 04:29 Lymphocytes # 2.6 K/mcL (0.6-4.6) 04/21/17 04:29 Monocytes # 1.0 K/mcL (0.0-1.3) 04/21/17 04:29 Eosinophils # 0.1 K/mcL (0.0-0.6) 04/21/17 04:29 Basophils # 0.1 K/mcL (0.0-0.2) 04/21/17 04:29 PT 11.8 Seconds (9.4-12.1) 04/20/17 20:21 INR 1.1 04/20/17 20:21 APTT 29.3 Seconds (26.0-36.0) 04/20/17 20:21 Sodium 141 mEq/L (136-145) 04/21/17 04:29 Potassium 3.6 mEq/L (3.5-4.5) 04/21/17 04:29 Chloride 105 mEq/L (98-109) 04/21/17 04:29 Carbon Dioxide 26 mEq/L (19-29) 04/21/17 04:29 BUN 10 mg/dL (7-20) 04/21/17 04:29 Creatinine 0.86 mg/dL (0.57-1.11) 04/21/17 04:29 Est GFR ( Amer) > 60 (> 60) 04/21/17 04:29 Est GFR (Non-Af Amer) > 60 (> 60) 04/21/17 04:29 BUN/Creatinine Ratio 12 (6-26) 04/21/17 04:29 Glucose 84 mg/dL (70-99) 04/21/17 04:29 Calculated Osmolality 290 (280-300) 04/21/17 04:29 Lactic Acid 1.3 mmol/L (0.5-2.2) 04/20/17 20:21 Calcium 9.7 mg/dL (8.6-10.8) 04/21/17 04:29 Phosphorus 3.5 mg/dL (2.3-4.7) 04/20/17 20:21 Magnesium 2.1 mg/dL (1.6-2.6) 04/20/17 20:21 Total Bilirubin 0.5 mg/dL (0.2-1.2) 04/20/17 20:21 Direct Bilirubin 0.2 mg/dL (0.0-0.5) 04/20/17 20:21 Indirect Bilirubin 0.3 mg/dL (0.0-1.2) 04/20/17 20:21 AST 29 Units/L (5-34) 04/20/17 20:21 ALT 21 Units/L (0-55) 04/20/17 20:21 Alkaline Phosphatase 55 Units/L (38-126) 04/20/17 20:21 Troponin I 0.00 ng/mL (0-0.03) 04/20/17 20:21 B-Natriuretic Peptide 70 pg/mL (0-100) 04/20/17 20:21 Serum Total Protein 7.6 g/dL (6.0-8.3) 04/20/17 20:21 Albumin 3.7 g/dL (3.5-5.0) 04/20/17 20:21 Globulin 3.9 g/dL (2.4-3.5) H 04/20/17 20:21 Albumin/Globulin Ratio 0.9 (1.1-2.2) L 04/20/17 20:21 Lipase 23 Units/L (8-78) 04/20/17 20:21 Urine Color Yellow (Yellow) 04/20/17 21:20 Urine Clarity Clear (Clear) 04/20/17 21:20 Urine pH 7.5 pH Units (5.0-8.0) 04/20/17 21:20 Ur Specific [place] 1.007 (1.010-1.025) L 04/20/17 21:20 Urine Protein Negative mg/dL (Neg-Trace) 04/20/17 21:20 Urine Glucose (UA) Normal mg/dL (Normal) 04/20/17 21:20 Urine Ketones Negative mg/dL (Negative) 04/20/17 21:20 Urine Blood Negative (Negative) 04/20/17 21:20 Urine Nitrite Negative (Negative) 04/20/17 21:20 Urine Bilirubin Negative (Negative) 04/20/17 21:20 Urine Urobilinogen Normal mg/dL (Normal) 04/20/17 21:20 Ur Leukocyte Esterase Moderate (Negative) H 04/20/17 21:20 Urine Microscopic RBC 3-5 per hpf (0-3) H 04/20/17 21:20 Urine Microscopic WBC 5-15 per hpf (0-3) H 04/20/17 21:20 Ur Squamous Epith Cells Many per lpf (None-Few) H 04/20/17 21:20 Urine Bacteria None Seen per hpf (None-Few) 04/20/17 21:20 Hyaline Casts None Seen per lpf (None-Few) 04/20/17 21:20 Ur Culture Indicated? YES (NO) A 04/20/17 21:20 Consult Discharge Plan - Plan Referrals: Neri Knowles MD [Primary Care Provider] -
[2017-04-21] MEDS ORDERED: *HR* OxyCODONE/APAP 5/325 TABLET PO PRN (16:45)
[2017-04-21] MEDS: Sulfamethoxazole/Trimeth DS 1 EACH TABLET PO SCH (20:05)
[2017-04-22 05:22] LABS: Basophils % 0.4 %; Eosinophils # 0.1 K/mcL (0.0-0.6); Eosinophils % 1.7 %; Hemoglobin 14.3 g/dL (11.5-15.4); Immature Granulocytes % 0.6 % (0-4); Lymphocytes # 2.3 K/mcL (0.6-4.6); Lymphocytes % 28.6 %; Mean Corpuscular Hemoglobin 32.4 pg (28.0-33.3); Monocytes % 12.2 %; Neutrophils # 4.5 K/mcL (1.6-8.9); Platelet Count 306 K/mcL (140-400); Red Blood Count 4.42 M/mcL (3.82-4.97); Red Cell Distribution Width 12.6 % (11.5-14.5); Segmented Neutrophils % 56.5 %
[2017-04-22 05:45] LABS: BUN/Creatinine Ratio 11 (6-26); Blood Urea Nitrogen 11 mg/dL (7-20); Calcium 9.6 mg/dL (8.6-10.8); Carbon Dioxide 29 mEq/L (19-29); Chloride 104 mEq/L (98-109); Glucose 93 mg/dL (70-99); Osmolality,Calculated 293 (280-300); Potassium 3.6 mEq/L (3.5-4.5); Sodium 142 mEq/L (136-145); eGFR For African Americans > 60 (> 60); eGFR For Non-African Americans 58 (> 60)
[2017-04-22] MEDS: CALCIUM PO SCH (07:29)
[2017-04-22] MEDS: Folic Acid 1 MG TABLET PO SCH (07:29)
[2017-04-22] MEDS: Sulfamethoxazole/Trimeth DS 1 EACH TABLET PO SCH (07:29)
[2017-04-22] MEDS: [UNRECOGNIZED DRUG - OTHER] PO SCH (07:29)
[2017-04-22] MEDS ORDERED: Furosemide 20 MG TABLET PO SCH (09:00)
[2017-04-22] MEDS ORDERED: FLUoxetine 20 MG CAPSULE PO SCH (09:00)
[2017-04-22 11:43] VITALS: BP 146/80
--- NOTE | 2017-04-22 13:38 | Discharge Summary ---
Date of Encounter: 04/22/17 Time of Encounter: 10:00 - Discharge Diagnosis (1) Acute confusion Priority: Primary Status: Acute (2) UTI (urinary tract infection) Priority: Primary Status: Acute Qualifiers: Urinary tract infection type: acute cystitis Hematuria presence: without hematuria Qualified Code(s): N30.00 - Acute cystitis without hematuria (3) Grief Priority: Secondary Status: Acute (4) Depression Priority: Secondary Status: Chronic Qualifiers: Depression Type: other depression Qualified Code(s): F32.89 - Other specified depressive episodes - Discharge Medications Prescriptions: FLUoxetine HCl [Prozac] 40 mg PO DAILY #60 Quetiapine Fumarate [Seroquel] 50 mg PO BID #120 Sulfamethoxazole/Trimeth DS [Bactrim Ds] 1 each PO BID #6 tab Home Medications: traMADol [Ultram] 50 mg PO TID PRN 07/10/16 [History] Furosemide [Lasix] 20 mg PO DAILY 07/11/16 [History] Lisinopril/Hydrochlorothiazide [Zestoretic 20-25 mg Tablet] 1 tab PO DAILY 07/11 [History] Valacyclovir HCl [Valtrex] 1,000 mg PO DAILY 07/11/16 [History] Potassium Chloride [Klor-Con 10] 10 meq PO DAILY #30 tablet.er 07/12/16 [Rx] Acetaminophen/Diphenhydramine [Acetaminophen Pm Caplet] 1 tab PO HS PRN [History] Calcium Carbonate/Vitamin D3 [Calcium 500+D Tablet Chew] 1 tab PO DAILY [History] Cholecalciferol (D-3) [Vitamin D] 1,000 unit PO DAILY 04/20/17 [History] Folic Acid 1 mg PO DAILY 04/20/17 [History] Ibuprofen [Motrin] 400 mg PO Q6HR PRN 04/20/17 [History] FLUoxetine HCl [Prozac] 40 mg PO DAILY #60 04/22/17 [Rx] Quetiapine Fumarate [Seroquel] 50 mg PO BID #120 04/22/17 [Rx] Sulfamethoxazole/Trimeth DS [Bactrim Ds] 1 each PO BID #6 tab 04/22/17 [Rx] Allergies/Adverse Reactions: Allergies No Known Allergies Allergy (Verified 04/20/17 22:48) Date of admission: 04/21/17 00:27 Primary care physician: Neri Knowles MD Consults: 04/21/17 11:06 Consult to Psychiatry [CONS] Stat Consulting Provider: Terrance Reilly Reason for Consult: halluciation Call Completed: Yes 04/21/17 11:09 Consult to [employer] [CONS] Routine Reason for SW Consult: Strange bahavior, may need social support. Discharging clinician: Harjinder Dorsey Anticipated date of discharge: 04/22/17 - Patient Status Disposition: Home, Self-Care Condition: Good Overall status at discharge: patient is back to baseline - Discharge Inst[facility]] Neri Knowles MD [Primary Care Provider] - 04/28/17 1:00 pm - Diet and Activity Activity: increase activity as tolerated Diet: regular diet Interval History: HPI: Ms. Argueta is a 66 year old female with a history of depression and recurrent TIAs who presents with one-week history of acute confusion with urinary frequency and was subsequently found to have possible pyelonephritis. Symptoms began last when she was at [facility] where she developed acute persistent confusion and altered mental status that did not get better. On review she denies dysuria but admits to urinary frequency and poorly localized backache. In the ER urine studies demonstrated scant pyuria with a CT abdomen and pelvis with nonspecific stranding left greater than right suspicious for pyelonephritis. Hospital course: Ms. Argueta is a 66 year old female was admitted for altered mental status. Patient was suspected pyelonephritis initially. However, she has no systemic symptoms. She has no elevated white count, no fever. She denies nausea, vomiting, or flank pain. Urine culture negative and blood culture negative. However, patient shows hallucination and paranoid behavior. Psychiatry consult was called and saw patient. Medication has been adjusted by psychiatry. Patient is recommended to follow-up as outpatient for psychiatry. I saw and examined the patient today. She is awake alert, oriented 3. Vitals are stable. CVAT negative. We will discharge patient home. Follow up with psychiatry as outpatient. - Time Spent with Patient Total time spent providing and/or coordinating discharge services: 20 min Less than 30 minutes - Constitutional Vitals: Temp Pulse Resp BP Pulse Ox 98.3 F 66 16 146/80 98 04/22/17 11:41 04/22/17 11:41 04/22/17 11:41 04/22/17 11:41 04/22/17 11:41 General appearance: Present: A&O X 3, no acute distress, answers questions appropriately - Head Head exam: Present: atraumatic, normocephalic - Eye Eye exam: Present: PERRL, conjuntiva pink, sclera anicteric Pupils: Present: PERRL - Neck Neck exam general surgery: Present: supple, trachea midline. Absent: lymphadenopathy - Respiratory Respiratory exam: Present: CTAB. Absent: accessory muscle use, rales, rhonchi, wheezes - Cardiovascular Cardiovascular exam: Present: RRR, +S1, +S2. Absent: diastolic murmur, gallop, rubs, systolic murmur - GI/Abdominal GI/Abdominal exam: Present: normal bowel sounds, soft, no peritoneal signs. Absent: distended, tenderness - Extremities Exam Extremities exam: Present: warm, radial pulses palpable and symetrical. Absent : calf tenderness, cyanotic, pedal edema - Neurological Exam Neurological exam: Present: CN II-XII intact, oriented X3, no focal deficits. Absent: pronater drift, facial droop, speech deficit - Skin Skin exam: Present: dry, intact
== END 2017-04-22 14:52 | disposition home or self-care (01) | DRG 689 ==
LOC: EMEROO 19:16 → 3BNU 19:16
PROVIDERS: ADMIT Internal Medicine; ATTEND Nurse Practitioner Family

== ENCOUNTER 2019-07-28 16:28 | Inpatient (IN) ==
[2019-07-28] MEDS ORDERED: Aspirin 81 MG TAB.CHEW PO ONE (17:03)
[2019-07-28] MEDS: Nitroglycerin 0.4 MG TAB.SUBL SL PRN ×2 (17:22→22:20)
[2019-07-28 18:02] LABS: Prothrombin Time 11.5 Seconds (9.4-12.1)
[2019-07-28 18:03] LABS: Basophils # 0.1 K/mcL (0.0-0.2); Basophils % 0.7 %; Eosinophils # 0.3 K/mcL (0.0-0.6); Eosinophils % 2.7 %; Hematocrit 42.9 % (35.3-44.9); Hemoglobin 15.1 g/dL (11.5-15.4); Immature Granulocytes % 0.6 % (0-4); Lymphocytes # 3.7 K/mcL (0.6-4.6); Lymphocytes % 37.4 %; Mean Corpuscular HGB Conc 35.2 g/dL (31.6-35.5); Mean Corpuscular Volume 93.7 fL (83.0-100.0); Monocytes # 0.8 K/mcL (0.0-1.3); Monocytes % 7.9 %; Neutrophils # 5.1 K/mcL (1.6-8.9); Platelet Count 342 K/mcL (140-400); Red Blood Count 4.58 M/mcL (3.82-4.97); Red Cell Distribution Width 12.4 % (11.5-14.5); Segmented Neutrophils % 50.7 %
[2019-07-28 18:05] LABS: Activated Partial Thrombo Time 31.2 Seconds (26.0-36.0)
[2019-07-28 18:12] LABS: BUN/Creatinine Ratio 13 (6-26); Blood Urea Nitrogen 17 mg/dL (8-23); Calcium 9.4 mg/dL (8.6-10.3); Carbon Dioxide 22 mEq/L (23-29); Chloride 102 mEq/L (98-107); Glucose 183 mg/dL (70-105); Osmolality,Calculated 288 (280-300); Potassium 4.2 mEq/L (3.5-5.1); Sodium 136 mEq/L (136-145); Troponin I < 0.03 ng/mL (< 0.04); eGFR For African Americans 51 (> 60); eGFR For Non-African Americans 42 (> 60)
[2019-07-28] MEDS ORDERED: 0.9 % Sodium Chloride 1,000 ML IVC ONE (19:14)
[2019-07-28] MEDS ORDERED: Naloxone 0.4 MG/ML INJ IVP PRN (21:34)
[2019-07-28] MEDS ORDERED: 0.9 % Sodium Chloride 1,000 ML IVC SCH (21:45)
[2019-07-29 01:04] LABS: Basophils # 0.1 K/mcL (0.0-0.2); Basophils % 0.9 %; Eosinophils # 0.3 K/mcL (0.0-0.6); Eosinophils % 2.8 %; Hematocrit 39.7 % (35.3-44.9); Hemoglobin 13.9 g/dL (11.5-15.4); Immature Granulocytes % 0.8 % (0-4); Lymphocytes # 3.1 K/mcL (0.6-4.6); Lymphocytes % 33.8 %; Mean Corpuscular Hemoglobin 32.9 pg (28.0-33.3); Mean Corpuscular Volume 94.1 fL (83.0-100.0); Mean Platelet Volume 9.6 fL (9.4-12.4); Monocytes # 0.7 K/mcL (0.0-1.3); Monocytes % 7.4 %; Neutrophils # 5.1 K/mcL (1.6-8.9); Platelet Count 273 K/mcL (140-400); Red Blood Count 4.22 M/mcL (3.82-4.97); Red Cell Distribution Width 12.5 % (11.5-14.5); Segmented Neutrophils % 54.3 %; White Blood Count 9.3 K/mcL (4.3-11.1)
[2019-07-29 01:33] LABS: BUN/Creatinine Ratio 13 (6-26); Blood Urea Nitrogen 17 mg/dL (8-23); Calcium 9.3 mg/dL (8.6-10.3); Carbon Dioxide 26 mEq/L (23-29); Chloride 104 mEq/L (98-107); Glucose 166 mg/dL (70-105); Osmolality,Calculated 291 (280-300); Potassium 3.8 mEq/L (3.5-5.1); Sodium 138 mEq/L (136-145); eGFR For African Americans 47 (> 60); eGFR For Non-African Americans 39 (> 60)
[2019-07-29 01:34] LABS: Troponin I < 0.03 ng/mL (< 0.04)
[2019-07-29] MEDS: *HR* Heparin 5,000 UNIT/ML VIAL SQ SCH ×2 (06:11→18:26)
[2019-07-29] MEDS ORDERED: Regadenoson 0.4 MG/5 ML SYRINGE IVP ONE (09:41)
[2019-07-29] MEDS ORDERED: Ibuprofen 400 MG TABLET PO PRN (12:49)
[2019-07-29] MEDS: Losartan/HCTZ 50-12.5 TABLET PO SCH (14:43)
[2019-07-29] MEDS: Spironolactone 25 MG TABLET PO SCH (14:43)
[2019-07-29] MEDS: amLODIPine 5 MG TABLET PO SCH (14:44)
[2019-07-29] MEDS: Cholecalciferol (D-3) 1,000 UNIT (25MCG) TABLET PO SCH (14:44)
[2019-07-29] MEDS: Folic Acid 1 MG TABLET PO SCH (14:44)
[2019-07-29] MEDS: FLUoxetine 20 MG CAPSULE PO SCH (14:44)
[2019-07-29] MEDS: Acetaminophen 325 MG TABLET PO PRN (14:48)
[2019-07-29 16:22] LABS: Calcium 9.6 mg/dL (8.6-10.3); Potassium 4.1 mEq/L (3.5-5.1)
[2019-07-29] MEDS: cloNIDine HCl 0.1 MG TABLET PO SCH (20:10)
[2019-07-30] MEDS: *HR* Heparin 5,000 UNIT/ML VIAL SQ SCH ×2 (05:49→17:53)
[2019-07-30 06:11] LABS: BUN/Creatinine Ratio 16 (6-26); Blood Urea Nitrogen 16 mg/dL (8-23); Calcium 9.2 mg/dL (8.6-10.3); Carbon Dioxide 23 mEq/L (23-29); Chloride 105 mEq/L (98-107); Glucose 134 mg/dL (70-105); Osmolality,Calculated 289 (280-300); Potassium 4.2 mEq/L (3.5-5.1); Sodium 138 mEq/L (136-145); eGFR For African Americans > 60 (> 60); eGFR For Non-African Americans 54 (> 60)
[2019-07-30] MEDS ORDERED: Cholecalciferol (D-3) 1,000 UNIT (25MCG) TABLET PO SCH (09:00)
[2019-07-30] MEDS ORDERED: Spironolactone 25 MG TABLET PO SCH (09:00)
[2019-07-30] MEDS ORDERED: amLODIPine 5 MG TABLET PO SCH (09:00)
[2019-07-30] MEDS ORDERED: Folic Acid 1 MG TABLET PO SCH (09:00)
[2019-07-30] MEDS ORDERED: Losartan/HCTZ 50-12.5 TABLET PO SCH (09:00)
[2019-07-30] MEDS ORDERED: FLUoxetine 20 MG CAPSULE PO SCH (09:00)
[2019-07-30] MEDS: Losartan/HCTZ 50-12.5 TABLET PO SCH (09:27)
[2019-07-30] MEDS: Cholecalciferol (D-3) 1,000 UNIT (25MCG) TABLET PO SCH (09:27)
[2019-07-30] MEDS: FLUoxetine 20 MG CAPSULE PO SCH (09:27)
[2019-07-30] MEDS: Folic Acid 1 MG TABLET PO SCH (09:27)
[2019-07-30] MEDS: cloNIDine HCl 0.1 MG TABLET PO SCH ×2 (09:27→21:23)
[2019-07-30] MEDS: amLODIPine 5 MG TABLET PO SCH (09:28)
[2019-07-30] MEDS: Spironolactone 25 MG TABLET PO SCH (09:28)
[2019-07-30] MEDS: Acetaminophen 325 MG TABLET PO PRN (15:30)
[2019-07-30] MEDS: valACYclovir 500 MG TABLET PO SCH (21:23)
[2019-07-31 05:13] LABS: BUN/Creatinine Ratio 21 (6-26); Blood Urea Nitrogen 21 mg/dL (8-23); Calcium 9.1 mg/dL (8.6-10.3); Carbon Dioxide 24 mEq/L (23-29); Chloride 103 mEq/L (98-107); Glucose 152 mg/dL (70-105); Osmolality,Calculated 290 (280-300); Potassium 3.7 mEq/L (3.5-5.1); Sodium 137 mEq/L (136-145); eGFR For African Americans > 60 (> 60); eGFR For Non-African Americans 54 (> 60)
[2019-07-31] MEDS: *HR* Heparin 5,000 UNIT/ML VIAL SQ SCH (06:12)
[2019-07-31] MEDS: FLUoxetine 20 MG CAPSULE PO SCH (08:38)
[2019-07-31] MEDS: Spironolactone 25 MG TABLET PO SCH (08:39)
[2019-07-31] MEDS: amLODIPine 5 MG TABLET PO SCH (08:39)
[2019-07-31] MEDS: cloNIDine HCl 0.1 MG TABLET PO SCH (08:39)
[2019-07-31] MEDS: valACYclovir 500 MG TABLET PO SCH (08:39)
[2019-07-31] MEDS: Folic Acid 1 MG TABLET PO SCH (08:39)
[2019-07-31] MEDS: Cholecalciferol (D-3) 1,000 UNIT (25MCG) TABLET PO SCH (08:39)
[2019-07-31] MEDS: Acetaminophen 325 MG TABLET PO PRN (08:48)
[2019-07-31] MEDS ORDERED: FLUOXETINE HCL 80 MG PO SCH (09:00)
[2019-07-31] MEDS ORDERED: Losartan/HCTZ 50-12.5 TABLET PO SCH (09:00)
[2019-07-31 12:09] VITALS: BP 117/77
== END 2019-07-31 14:21 | disposition home or self-care (01) | DRG 313 ==
LOC: EMEROOARM 16:28 → 3BNU 16:28 → SUATTDRO 19:31 → 3BNU 19:53
PROVIDERS: ADMIT Internal Medicine; ATTEND Internal Medicine